=== PATIENT | female | born 1970 | race Caucasian/White ===

== ENCOUNTER 2019-07-02 18:04 | Emergency (ER) | payer OTHER ==
[~2019-07-02] VITALS: Ht 162.6 cm; Wt 81.6 kg
--- NOTE | 2019-07-02 18:07 | NUR ---
called for pt. pt in bathroom
[2019-07-02] MEDS ORDERED: MORPHINE SULFATE 2 MG/1 ML DISP.SYRIN IV ONE (19:00)
[2019-07-02] MEDS ORDERED: IV NORMAL SALINE 1000 ML BAG IV ONE (19:00)
[2019-07-02] MEDS ORDERED: IV NS 1000 ML 1,000 ML IV ONE (19:00)
--- NOTE | 2019-07-02 19:00 | NUR ---
HAND OFF AND SBAR GIVEN BY OUTGOING ER DAY SHIFT RN PT IS ON SUPINE SEMIFOWLER'S POSITION NAD PAIN AT 2-4/10 TOLERABLE DUE TO VULVAR IRRITATION STATES BURNING PAIN UPON URINATION
[2019-07-02 19:11] LABS: BASOPHILS % (AUTO) 0.2 % (0.0-2.0); EOSINOPHILS % (AUTO) 0.4 % (0.0-7.0); HEMOGLOBIN 11.4 g/dL (10.9-14.3); LYMPHOCYTES % (AUTO) 13.7 % (20.5-51.5); MEAN CORPUSCULAR HEMOGLOBIN 26.8 uug (24.7-32.8); MEAN CORPUSCULAR HGB CONC 33 g/dL (32.3-35.6); MEAN CORPUSCULAR VOLUME 82.6 fL (75.5-95.3); MONOCYTES # (AUTO) 0.6 K/uL (2.0-10.0); MONOCYTES % (AUTO) 7.9 % (0.0-11.0); NEUTROPHILS # (AUTO) 5.6 K/uL (1.8-8.9); NEUTROPHILS % (AUTO) 77.8 % (38.5-71.5); PLATELET COUNT (AUTO) 306 K/uL (179-408); RED BLOOD CELL COUNT(AUTO) 4.24 MIL/uL (3.63-4.92); WHITE BLOOD COUNT (AUTO) 7.1 K/uL (3.8-11.8)
[2019-07-02] MEDS ORDERED: MORPHINE SULFATE 2 MG/1 ML DISP.SYRIN ONE (19:24)
[2019-07-02 19:31] LABS: CREATININE 0.8 mg/dL (0.6-1.3); POTASSIUM 3.8 mmol/L (3.5-5.1)
[2019-07-02 19:36] LABS: BILIRUBIN,DIRECT 0.1 mg/dL (0.0-0.2); BILIRUBIN,TOTAL 0.5 mg/dL (0.2-1.0); TOTAL PROTEIN, SERUM 7.5 g/dL (6.4-8.2)
--- NOTE | 2019-07-02 19:45 | NUR ---
PT REFUSED IV INSERTION AFTER TWO ATTEMPTS FROM ER [employer] PT REFUSED IV PAIN MEDS AT THIS TIME. STATES PN IS TOLERABLE ERMD AWARE MD AT BEDSIDE FOR PELVIC EXAM PROVIDED PRIVACY CHAPERONED BY SISTER AND RN ON DUTY PT ABLE TO TOLERATE PROCEDURE KEPT WARM DRY AND COMFORTABLE PT ABLE TO AMBULATE TOWARDS THE RESTROOM AFTERWARDS
--- NOTE | 2019-07-02 19:51 | NUR ---
Reached out to radiology to contact [facility] [employer] - Smartphone RFID.
[2019-07-02 21:24] LABS: *BILIRUBIN,URIN NEGATIVE (NEGATIVE); *BLOOD, URINE 1+ (NEGATIVE); *COLOR,URINE YELLOW (YELLOW); *KETONES,URINE NEGATIVE (NEGATIVE); *UROBILINOGEN,URINE 0.2 E.U./dl (NORMAL); LEUKOCYTE ESTERASE ,URINE TRACE (NEGATIVE); NITRITE, URINE NEGATIVE (NEGATIVE); UGLUCOSE NEGATIVE (NEGATIVE)
[2019-07-02 21:25] LABS: *CLARITY,URINE SLIGHTLY CLOUDY (CLEAR)
[2019-07-02 21:27] LABS: *URINE HCG, QUAL NEGATIVE (NEGATIVE)
[2019-07-02 21:34] LABS: BACTERIA,URINE FEW /HPF (NONE SEEN); SQUAMOUS EPITHELIAL CELL,UR FEW /HPF (NONE SEEN); URINE AMORPHOUS URATE MODERATE /HPF
--- NOTE | 2019-07-02 22:21 | NUR ---
PT AMBULATORY W/ STABLE GAIT ALL BELONGINGS W/ PT Patient discharged to home in stable conditon. Written and verbal after care instructions given. Patient verbalizes understanding of instructions.
[2019-07-02 22:24] VITALS: BP 114/87
== END 2019-07-02 22:24 | disposition home or self-care (01) ==
LOC: ER 18:04
DX: R10.30 Lower abdominal pain, unspecified (principal); R19.7 Diarrhea, unspecified; G43.909 Migraine, unspecified, not intractable, without status migrainosus; Z88.1 Allergy status to other antibiotic agents; Z91.040 Latex allergy status; Z88.8 Allergy status to other drugs, medicaments and biological substances
CPT/HCPCS: 36415; 76856; 83690; 84703; 85025; 93005; A4663; J2270; J7030